=== PATIENT | female | born 1985 | race Two or more races ===

== ENCOUNTER 2016-12-13 19:30 | Emergency (ER) | payer SELFPAY ==
[~2016-12-13] VITALS: Ht 165.1 cm; Wt 103.6 kg
[2016-12-13 20:37] LABS: ASPARTATE AMINO TRANSFERASE 13 U/L (15-37); BLOOD UREA NITROGEN 17 mg/dL (7-18)
[2016-12-13 20:47] LABS: PATH.CAST-FLAG NOT PRESENT; SPERM-FLAG NOT PRESENT; SRC-FLAG NOT PRESENT; XTAL-FLAG NOT PRESENT; YLC-FLAG NOT PRESENT
[2016-12-13 22:07] VITALS: BP 136/74
== END 2016-12-13 22:10 | disposition home or self-care (01) ==
LOC: ED 22:04
DX: R10.31 Right lower quadrant pain (principal)
CPT/HCPCS: 36415; 76856; 80053; 81001; 84703; 85025; 87086

== ENCOUNTER 2017-04-07 22:13 | Emergency (ER) | payer MEDICAID ==
[~2017-04-07] VITALS: Ht 165.1 cm; Wt 104.9 kg
[2017-04-07] MEDS ORDERED: IBUPROFEN 200 MG TABLET PO ONE (23:30)
[2017-04-07] MEDS ORDERED: IBUPROFEN 200 MG TABLET ONE (23:32)
[2017-04-08 00:15] VITALS: BP 134/76
== END 2017-04-08 00:18 | disposition home or self-care (01) ==
LOC: ED 04-08 00:09
DX: R07.2 Precordial pain (principal); J06.9 Acute upper respiratory infection, unspecified; J02.9 Acute pharyngitis, unspecified
CPT/HCPCS: 71020; 93005; 99284

== ENCOUNTER 2017-06-30 19:39 | Emergency (ER) | payer MEDICAID ==
[~2017-06-30] VITALS: Ht 165.1 cm; Wt 107.0 kg
[2017-06-30 19:40] VITALS: BP 131/82
[2017-06-30] MEDS ORDERED: KETOROLAC 30 MG/1 ML ONE (20:19)
[2017-06-30] MEDS ORDERED: KETOROLAC 30 MG/1 ML IM ONE (20:30)
== END 2017-06-30 20:46 | disposition home or self-care (01) ==
LOC: ED 19:50
DX: M54.42 Lumbago with sciatica, left side (principal); M62.830 Muscle spasm of back
CPT/HCPCS: 96372; 99283; J1885

== ENCOUNTER 2017-10-13 17:03 | Emergency (ER) | payer MEDICAID ==
[~2017-10-13] VITALS: Ht 165.1 cm; Wt 106.3 kg
[2017-10-13] MEDS ORDERED: ACETAMINOPHEN 325 MG TABLET ONE (17:39)
[2017-10-13 17:44] LABS: BASOPHILS # (AUTO) 0.02 x10^3/uL (0-0.1); BASOPHILS % (AUTO) 0 % (0-1); EOSINOPHILS # (AUTO) 0.12 x10^3/uL (0-0.4); EOSINOPHILS % (AUTO) 2 % (1-7); LYMPHOCYTES # (AUTO) 1.38 x10^3/uL (1-3.4); LYMPHOCYTES % (AUTO) 27 % (22-44); MD NO; MEAN CORPUSCULAR HEMOGLOBIN 32.4 pg (27.0-34.8); MEAN CORPUSCULAR HGB CONC 35.2 g/dL (32.4-35.8); MEAN CORPUSCULAR VOLUME 91.8 fL (80-100); MEAN PLATELET VOLUME 7.7 fL (7.4-10.4); MONOCYTES # (AUTO) 0.55 x10^3/uL (0.2-0.8); MONOCYTES % (AUTO) 11 % (2-9); NEUTROPHILS # (AUTO) 3.11 x10^3/uL (1.8-6.8); NEUTROPHILS % (AUTO) 60 % (42-75); PLATELET COUNT 206 x10^3/uL (130-400); RED BLOOD COUNT 4.54 x10^6/uL (3.82-5.3); RED CELL DISTRIBUTION WIDTH 12.4 % (9.6-15.2)
[2017-10-13 17:56] LABS: ALBUMIN 3.8 g/dL (3.4-5.0); ANION GAP 9 mmol/L (5-15); CALCIUM 8.7 mg/dL (8.5-10.1); CHLORIDE 108 mmol/L (98-107); CREATININE 0.66 mg/dL (0.55-1.02)
[2017-10-13] MEDS ORDERED: ACETAMINOPHEN 325 MG TABLET PO ONE (18:00)
[2017-10-13 18:39] LABS: MICROSCOPIC AUTO
[2017-10-13 18:45] LABS: CULTURE INDICATED? NO
[2017-10-13 19:26] VITALS: BP 122/64
== END 2017-10-13 19:28 | disposition home or self-care (01) ==
LOC: ED 18:09
DX: O20.0 Threatened abortion (principal); Z3A.01 Less than 8 weeks gestation of pregnancy
CPT/HCPCS: 36415; 76801; 80048; 81001; 82040; 84702; 85025; 86901; 99285